=== PATIENT | male | born 1985 | race African-American/Black ===

== ENCOUNTER → 2018-11-22 | Outpatient (REF) | payer OTHER ==
[2018-11-22 19:17] LABS: APPEARANCE, URINE CLEAR (CLEAR); BACTERIA, URINE AUTO NEGATIVE (NEGATIVE); BILIRUBIN, URINE AUTO NEGATIVE (NEGATIVE); BLOOD, URINE BLOOD 3+ (NEGATIVE); COLOR, URINE YELLOW (YELLOW); GLUCOSE, URINE (UA) AUTO NEGATIVE (NEGATIVE); KETONE, URINE AUTO NEGATIVE (NEGATIVE); LEUKOCYTE ESTERASE, URINE AUTO NEGATIVE (NEGATIVE); MUCUS, URINE SMALL (NEGATIVE); NITRITE, URINE AUTO NEGATIVE (NEGATIVE); PROTEIN, URINE AUTO 1+ mg/dL (NEGATIVE); RBC, URINE AUTO 4 /HPF (0-3); SPECIFIC GRAVITY URINE AUTO 1.011 (1.002-1.035); SQUAMOUS EPITHELIAL CELL UR AU 0 /HPF (0-6); UROBILINOGEN, URINE AUTO 0.2 mg/dL (0.0-2.0); WBC, URINE AUTO 1 /HPF (0-3)
[2018-11-22 19:35] LABS: HEMATOCRIT 47.3 % (42.0-52.0); HEMOGLOBIN 16.1 g/dl (13.5-17.5); MEAN CORPUSCULAR HEMOGLOBIN 28.9 pg (27.0-33.0); MEAN CORPUSCULAR VOLUME 84.9 fl (80.0-96.0); PLATELET COUNT, AUTOMATED 338 10^3/uL (150-450); RED BLOOD COUNT 5.57 10^6/uL (4.30-6.10); WHITE BLOOD COUNT 7.6 10^3/uL (4.0-10.0)
[2018-11-22 21:11] LABS: CHLAMYDIA DNA AMPLIFICATION NEGATIVE (NEGATIVE); GC DNA AMPLIFICATION NEGATIVE (NEGATIVE)
[2018-11-22 22:09] LABS: ALT/SGPT 526 U/L (12-78); BILIRUBIN,TOTAL 0.5 MG/DL (0.2-1.0); BLOOD UREA NITROGEN 11 MG/DL (7-18); CALCIUM LEVEL 9.2 MG/DL (8.5-10.1); CARBON DIOXIDE LEVEL 30 MEQ/L (21-32); CHLORIDE LEVEL 103 MEQ/L (98-107); CPK CREATINE PHOSPHOKINASE 110000 U/L (39-308); CREATININE FOR GFR 0.95 MG/DL (0.70-1.30); GLOMERULAR FILTRATION RATE > 60.0 (>60); GLUCOSE, FASTING 90 MG/DL (70-100); POTASSIUM SERUM 4.2 MEQ/L (3.5-5.1); SODIUM LEVEL 139 MEQ/L (136-145); TOTAL PROTEIN 7.8 GM/DL (6.4-8.2)
== END ==
LOC: M SFHCLERA 15:50
PROVIDERS: ATTEND Physician Assistant
DX: R82.998 Other abnormal findings in urine (principal); R31.29 Other microscopic hematuria

== ENCOUNTER 2018-11-24 16:12 | Inpatient (IN) | payer OTHER ==
[~2018-11-24] VITALS: Ht 177.8 cm; Wt 89.8 kg
[2018-11-24] MEDS ORDERED: NS 1,000 ML IV ONE ×2 (16:45→17:15)
[2018-11-24 17:14] LABS: BASO % 0.3 % (0.0-1.0); EOS # 0.2 10^3/uL (0.0-0.50); EOS % 3.2 % (0.0-3.0); HEMOGLOBIN 16.1 g/dl (13.5-17.5); LYMPH # 2.5 10^3/uL (1.5-4.5); LYMPH % 39.6 % (24.0-44.0); MEAN CORPUSCULAR HEMOGLOBIN 29.4 pg (27.0-33.0); MEAN CORPUSCULAR VOLUME 84.1 fl (80.0-96.0); MONO # 0.6 10^3/uL (0.0-0.8); MONO % 9.3 % (0.0-5.0); PLATELET COUNT, AUTOMATED 311 10^3/uL (150-450); RED BLOOD COUNT 5.47 10^6/uL (4.30-6.10); WHITE BLOOD COUNT 6.3 10^3/uL (4.0-10.0)
[2018-11-24 17:32] LABS: VENOUS BASE EXCESS -2.6 (-2.0-2.0); VENOUS HCO3 23.7 MEQ/L (23.0-27.0); VENOUS PARTIAL PRESSURE O2 43.9 mmHg (30.0-50.0); VENOUS PH 7.329 UNITS (7.330-7.430); VENOUS STANDARD HCO3 21.7 MEQ/L; VENOUS TOTAL CO2 25.1 MEQ/L (24.0-28.0)
[2018-11-24 17:51] LABS: AMPHETAMINES LEVEL URINE NEGATIVE (NEGATIVE); BARBITURATES URINE NEGATIVE (NEGATIVE); BENZODIAZEPINES URINE NEGATIVE (NEGATIVE); CANNABINOIDS URINE NEGATIVE (NEGATIVE); COCAINE METABOLITE URINE NEGATIVE (NEGATIVE); METHADONE URINE NEGATIVE (NEGATIVE); OPIATES URINE NEGATIVE (NEGATIVE); PHENCYCLIDINE URINE NEGATIVE (NEGATIVE)
[2018-11-24 18:11] LABS: SICKLE CELL SCREEN NEGATIVE (NEGATIVE)
[2018-11-24 18:57] LABS: ALBUMIN 3.8 GM/DL (3.2-5.2); ALT/SGPT 586 U/L (12-78); BILIRUBIN,TOTAL 0.4 MG/DL (0.2-1.0); BLOOD UREA NITROGEN 11 MG/DL (7-18); CALCIUM LEVEL 8.8 MG/DL (8.5-10.1); CARBON DIOXIDE LEVEL 27 MEQ/L (21-32); CHLORIDE LEVEL 107 MEQ/L (98-107); CPK CREATINE PHOSPHOKINASE 54023 U/L (39-308); CREATININE FOR GFR 0.98 MG/DL (0.70-1.30); GLOMERULAR FILTRATION RATE > 60.0 (>60); GLUCOSE, FASTING 93 MG/DL (70-100); LDH LACTATE DEHYDROGENASE 1742 U/L (87-241); MYOGLOBIN 1213 NG/ML (16-116); PHOSPHORUS LEVEL 3.9 MG/DL (2.5-4.9); POTASSIUM SERUM 4.2 MEQ/L (3.5-5.1); SODIUM LEVEL 143 MEQ/L (136-145); TOTAL PROTEIN 7.6 GM/DL (6.4-8.2); URIC ACID 4.7 MG/DL (3.5-7.2)
[2018-11-24] MEDS ORDERED: MOM 30ML SUSPENSION UDC PO PRN (19:45)
[2018-11-24] MEDS ORDERED: ACETAMINOPHEN TAB 650MG DOSE (2X325MG) PO PRN (19:45)
[2018-11-24] MEDS ORDERED: MAALOX 30 ML SUSP *UDC PO PRN (19:45)
[2018-11-24 21:30] VITALS: BP 140/80
[2018-11-24] MEDS: NS 0.45% 1,000 ML IV SCH (21:30)
--- NOTE | 2018-11-24 21:35 | HPEPDOC ---
General Date of Admission November 24, 2018 at 19:45 Date of Service: November 24, 2018 Chief Complaint The patient is a 33-year-old male admitted with a reason for visit of Rhabdomyolysis. 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 He was sent to ER due to elevated CK level. Pt reports intense work-out on Friday, that included pull ups. He felt severe arm pain bilaterally, and also generalized weakness, extreme fatigue and nausea. On Friday morning, he noticed brownish discoloration of urine, which prompted him to call health line. He was advised to drink plenty of fluid and a blood test was done. The test result came back today and CK was 100K. In the ER, pt's blood test today showed decreasing CK level at 54K, along with elevated transaminase and myoglobin. Renal fx, CBC and vitals are fine. Pt reports similar episodes of fatigue and dizziness following exercise in the past; for this he had head CT, Echo and Stress test; they were all fine, according ot the pt. Pt also reports intermittent facial rash involving bilateral cheeks for several years. Denies any definite dx; denies any family hx of muscle or skin problems. Denies taking any medication; denies any medical hx. Pt says his arm pain is a lot better, and overall fatigue is resolved. Home Medications No Active Prescriptions or Reported Meds Allergies Coded Allergies: Penicillins (Verified Allergy, Intermediate, hives, 11/24/18) Past Medical History Medical History None Surgical History None Family History Significant Family History: No pertinent family hx Social History * Smoker: Denies Alcohol: Denies Drugs: denies A-FIB/CHADSVASC A-FIB History Current/History of A-Fib/PAF?: No Review of Systems Constitutional: Reports: Weakness, Fatigue; Denies: Chills, Fever Eyes: Denies: Pain, Vision change ENT: Denies: Head Aches Skin: Denies: Rash, Lesions Pulmonary: Denies: Dyspnea, Cough Cardiovascular: Denies: Chest Pain, Palpitations, Edema, Lt Headedness Gastrointestinal: Denies: Nausea, Vomiting, Abdominal Pain, Diarrhea, Constipation Genitourinary: Denies: Dysuria, Frequency Hematologic: Denies: Bruising Endocrine: Denies: Polydipsia, Polyphagia Musculoskeletal: Denies: Neck Pain, Back Pain Neurological: Reports: Weakness; Denies: Numbness, Change in speech Psych: Reports: Mood Normal; Denies: Anxiety Physical Examination General Exam: Positive: Alert, Cooperative, No Acute Distress Eye Exam: Positive: PERRLA ENT Exam: Positive: Atraumatic, Mucous membr. moist/pink Neck Exam: Positive: Supple; Negative: JVD Chest Exam: Positive: Clear to auscultation, Normal air movement Heart Exam: Positive: Rate Normal, Regular Rhythm Abdomen Exam: Positive: Normal bowel sounds, Soft; Negative: Tenderness Extremity Exam: Negative: Edema Skin Exam: Positive: Nl turgor and temperature; Negative: Rash, Breakdown Neuro Exam: Positive: Strength at 5/5 X4 ext, Normal Tone, Sensation Intact Psych Exam: Positive: Mental status NL, Mood NL, Oriented x 3 Vital Signs Vital Signs Date Time Temp Pulse Resp B/P (MAP) Pulse Ox O2 Delivery O2 Flow Rate FiO2 11/24/18 21:03 81 18 125/78 (94) 98 11/24/18 16:13 98.8 Room Air Laboratory Data Labs 24H Laboratory Tests 2 11/24/18 00:00: 11/24/18 16:53: Immature Granulocyte % (Auto) 0.6, White Blood Count 6.3, Red Blood Count 5.47, Hemoglobin 16.1, Hematocrit 46.0, Mean Corpuscular Volume 84.1, Mean Corpuscular Hemoglobin 29.4, Mean Corpuscular Hemoglobin Concent 35.0, Red Cell Distribution Width 12.3, Platelet Count 311, Neutrophils (%) (Auto) 47.0, Lymphocytes (%) (Auto) 39.6, Monocytes (%) (Auto) 9.3H, Eosinophils (%) (Auto) 3.2H, Basophils (%) (Auto) 0.3, Neutrophils # (Auto) 3.0, Lymphocytes # (Auto) 2.5, Monocytes # (Auto) 0.6, Eosinophils # (Auto) 0.2, Basophils # (Auto) 0.0, Nucleated Red Blood Cells % (auto) 0.0, Sickle Cell Screen NEGATIVE, Anion Gap 9, Glomerular Filtration Rate > 60.0, Blood Urea Nitrogen 11, Creatinine 0.98, Sodium Level 143, Potassium Level 4.2, Chloride Level 107, Carbon Dioxide Level 27, Calcium Level 8.8, Phosphorus Level 3.9, Aspartate Amino Transf (AST/SGOT) 1197H, Al anine Aminotransferase (ALT/SGPT) 586H, Lactate Dehydrogenase 1742H, Total Creatine Kinase 73713I, Alkaline Phosphatase 104, Total Bilirubin 0.4, Uric Acid 4.7, Total Protein 7.6, Albumin 3.8, Ammonia 46H, Myoglobin 1213H, Albumin/Globulin Ratio 1.00, Urine Amphetamines Screen NEGATIVE, Urine Benzod iazepines Screen NEGATIVE, Urine Opiates Screen NEGATIVE, Urine Methadone Screen NEGATIVE, Urine Barbiturates Screen NEGATIVE, Urine Phencyclidine Screen NEGATIVE, Urine Cocaine Metabolite Screen NEGATIVE, Urine Cannabinoids Screen NEGATIVE 11/24/18 17:11: 11/24/18 17:20: Blood Gas Bicarbonate Standard 21.7, Venous Blood pH 7.329L, Venous Blood Partial Pressure CO2 46.0, Venous Blood Partial Pressure O2 43.9, Venous Blood Total Carbon Dioxide 25.1, Venous Blood HCO3 23.7, Venous Blood Oxygen Saturation 76.0, Venous Blood Base Excess -2.6L, Lactic Acid Level 2.0 11/24/18 19:01: POC Glucose (Misc Panel) 93, POC Sodium (Misc Panel) 142, POC Potassium (Misc Panel) 4.1, POC Chloride (Misc Panel) 104, POC Total CO2 (Misc Panel) 27.0, POC Blood Urea Nitrogen (Misc Panel 10, POC Ionized Calcium (Misc Panel) 4.8, POC Creatinine (Misc Panel) 1.0, POC Hematocrit (Misc Panel) 42.0 CBC/BMP Laboratory Tests 11/24/18 16:53 Red Blood Count 5.47, Mean Corpuscular Volume 84.1, Mean Corpuscular Hemoglobin 29.4, Mean Corpuscular Hemoglobin Concent 35.0, Red Cell Distribution Width 12.3, Neutrophils (%) (Auto) 47.0, Lymphocytes (%) (Auto) 39.6, Monocytes (%) (Auto) 9.3 H, Eosinophils (%) (Auto) 3.2 H, Basophils (%) (Auto) 0.3, Neutrophil s # (Auto) 3.0, Lymphocytes # (Auto) 2.5, Monocytes # (Auto) 0.6, Eosinophils # (Auto) 0.2, Basophils # (Auto) 0.0, Calcium Level 8.8, Phosphorus Level 3.9, Aspartate Amino Transf (AST/SGOT) 1197 H, Alanine Aminotransferase (ALT/SGPT) 586 H, Lactate Dehydrogenase 1742 H, Total Creatine Kinase 60418 H, Alkaline Phosphatase 104, Total Bilirubin 0.4, Uric Acid 4.7, Total Protein 7.6, Albumin 3.8 Assessment/Plan Rhabdomyolysis due to Extreme Physical Exertion - Admit to inpatient - Aggressive IV hydration for renal protection; start with IV 0.45%NS at 250 cc/hr - Monitor renal fx and CK level - May consider w/u for dermatomyositis or genetic disorders as OP if recurrent problem. - Encourage free Ambulate to prevent DVT Plan / VTE VTE Prophylaxis Ordered?: No VTE Exclusion Mechanical Proph: Low Risk for VTE VTE Exclusion Pharmacological: At Low Risk for VTE Plan Anticipated Discharge: Home MIHAELA SPEARS MD November 24, 2018 21:35
[2018-11-25] VITALS: BP 133/60
[2018-11-25] MEDS: NS 0.45% 1,000 ML IV SCH ×6 (01:00→21:45)
[2018-11-25 08:00] VITALS: BP 156/85
[2018-11-25] MEDS: KETOROLAC 30 MG/ML VIAL (J1885) IV PRN (08:44)
[2018-11-25 09:17] LABS: ALBUMIN 3.3 GM/DL (3.2-5.2); ALT/SGPT 425 U/L (12-78); BILIRUBIN,TOTAL 0.4 MG/DL (0.2-1.0); BLOOD UREA NITROGEN 8 MG/DL (7-18); CALCIUM LEVEL 8.2 MG/DL (8.5-10.1); CARBON DIOXIDE LEVEL 26 MEQ/L (21-32); CHLORIDE LEVEL 108 MEQ/L (98-107); CPK CREATINE PHOSPHOKINASE 29776 U/L (39-308); CREATININE FOR GFR 0.84 MG/DL (0.70-1.30); GLOMERULAR FILTRATION RATE > 60.0 (>60); GLUCOSE, FASTING 89 MG/DL (70-100); POTASSIUM SERUM 4.2 MEQ/L (3.5-5.1); SODIUM LEVEL 141 MEQ/L (136-145); TOTAL PROTEIN 6.3 GM/DL (6.4-8.2)
[2018-11-25 16:00] VITALS: BP 137/63
--- NOTE | 2018-11-25 17:09 | IPNPDOC ---
Text Note Date of Service The patient was seen on 11/25/18. NOTE Subjective: Patient seen and examined at bedside. No acute overnight events reported. Patient has no new medical complaints. States he is feeling better, with increased mobility of his upper extremities. Objective: General: NAD, lying comfortably in bed, well developed HEENT: NC/AT, EOMI, PERRL Lungs: CTA B/L Heart: +S1S2, RRR Abd: soft, NT, +BS Ext: no edema A/P: 33 yo male for rhabdomyolysis secondary to strenuous workouts: #rhabdo - CK trending down - continue to follow - aggressive hydration - toradol for pain control #dizziness/weakness - unclear etiology - patient states has had extensive workup including exercise stress test, echocardiogram, MRI/MRA of brain - refer for o/p neurology follow up VS,Zena, I+O VS, Zena, I+O Laboratory Tests 11/25/18 06:50 Calcium Level 8.2 L, Aspartate Amino Transf (AST/SGOT) 695 H, Alanine Aminotransferase (ALT/SGPT) 425 H, Total Creatine Kinase 15220 H, Alkaline Phosp hatase 77, Total Bilirubin 0.4, Total Protein 6.3 L, Albumin 3.3 Vital Signs Date Time Temp Pulse Resp B/P (MAP) Pulse Ox O2 Delivery O2 Flow Rate FiO2 11/25/18 16:00 98.6 74 19 137/63 (87) 100 11/24/18 16:13 Room Air I&O- Last 24 Hours up to 6 AM 11/25/18 06:00 Intake Total 3225 ml Output Total 1350 ml Balance 1875 ml MASON MORENO MD November 25, 2018 17:09
[2018-11-25 20:00] VITALS: BP 128/71
[2018-11-26] VITALS: BP 137/69
[2018-11-26] MEDS: NS 0.45% 1,000 ML IV SCH ×6 (02:00→23:00)
[2018-11-26 06:52] LABS: HEMATOCRIT 40.2 % (42.0-52.0); MEAN CORPUSCULAR HEMOGLOBIN 30.1 pg (27.0-33.0); MEAN CORPUSCULAR HGB CONC 35.1 g/dl (32.0-36.5); MEAN CORPUSCULAR VOLUME 85.7 fl (80.0-96.0); PLATELET COUNT, AUTOMATED 248 10^3/uL (150-450); RED BLOOD COUNT 4.69 10^6/uL (4.30-6.10); WHITE BLOOD COUNT 6.2 10^3/uL (4.0-10.0)
[2018-11-26 07:10] LABS: HEMOGLOBIN 14.1 g/dl (13.5-17.5)
[2018-11-26 08:00] VITALS: BP 125/66
[2018-11-26 08:15] LABS: BLOOD UREA NITROGEN 9 MG/DL (7-18); CALCIUM LEVEL 8.2 MG/DL (8.5-10.1); CARBON DIOXIDE LEVEL 27 MEQ/L (21-32); CHLORIDE LEVEL 108 MEQ/L (98-107); CPK CREATINE PHOSPHOKINASE 14023 U/L (39-308); CREATININE FOR GFR 0.84 MG/DL (0.70-1.30); GLOMERULAR FILTRATION RATE > 60.0 (>60); GLUCOSE, FASTING 86 MG/DL (70-100); POTASSIUM SERUM 3.7 MEQ/L (3.5-5.1); SODIUM LEVEL 142 MEQ/L (136-145)
[2018-11-26 09:56] LABS: ALT/SGPT 354 U/L (12-78)
[2018-11-26] MEDS: KETOROLAC 30 MG/ML VIAL (J1885) IV PRN ×2 (14:26→23:01)
[2018-11-26 16:00] VITALS: BP 142/81
[2018-11-26 20:00] VITALS: BP 143/73
[2018-11-27] MEDS: NS 0.45% 1,000 ML IV SCH ×6 (02:36→20:17)
[2018-11-27 03:00] VITALS: BP 134/62
[2018-11-27 08:00] VITALS: BP 131/87
--- NOTE | 2018-11-27 11:13 | IPNPDOC ---
Text Note Date of Service The patient was seen on 11/27/18. NOTE Subjective: Patient seen and examined at bedside. No acute overnight events reported. Patient has no new medical complaints. States he is feeling better, with increased mobility of his upper extremities. Objective: General: NAD, lying comfortably in bed, well developed HEENT: NC/AT, EOMI, PERRL Lungs: CTA B/L Heart: +S1S2, RRR Abd: soft, NT, +BS Ext: no edema A/P: 33 yo male for rhabdomyolysis secondary to strenuous workouts: #rhabdo - CK trending down - continue to follow - continue aggressive hydration - toradol for pain control #dizziness/weakness - unclear etiology - patient states has had extensive workup including exercise stress test, echocardiogram, MRI/MRA of brain - refer for o/p neurology follow up VS,Zena, I+O VS, Zena, I+O Vital Signs Date Time Temp Pulse Resp B/P (MAP) Pulse Ox O2 Delivery O2 Flow Rate FiO2 11/27/18 08:00 98.5 69 18 131/87 (102) 100 11/24/18 16:13 Room Air I&O- Last 24 Hours up to 6 AM 11/27/18 06:00 Intake Total 5160 ml Output Total 4875 ml Balance 285 ml MASON MORENO MD November 27, 2018 11:13
[2018-11-27 16:00] VITALS: BP 140/71
[2018-11-28] VITALS: BP 108/71
[2018-11-28] MEDS: KETOROLAC 30 MG/ML VIAL (J1885) IV PRN (00:23)
[2018-11-28] MEDS: NS 0.45% 1,000 ML IV SCH ×6 (00:23→21:28)
[2018-11-28 07:01] LABS: HEMATOCRIT 37.8 % (42.0-52.0); HEMOGLOBIN 13.2 g/dl (13.5-17.5); MEAN CORPUSCULAR HEMOGLOBIN 29.2 pg (27.0-33.0); MEAN CORPUSCULAR HGB CONC 34.9 g/dl (32.0-36.5); MEAN CORPUSCULAR VOLUME 83.6 fl (80.0-96.0); PLATELET COUNT, AUTOMATED 257 10^3/uL (150-450); RED BLOOD COUNT 4.52 10^6/uL (4.30-6.10); WHITE BLOOD COUNT 5.8 10^3/uL (4.0-10.0)
[2018-11-28 07:45] LABS: ALT/SGPT 246 U/L (12-78); BILIRUBIN,TOTAL 0.4 MG/DL (0.2-1.0); BLOOD UREA NITROGEN 10 MG/DL (7-18); CALCIUM LEVEL 8.4 MG/DL (8.5-10.1); CARBON DIOXIDE LEVEL 27 MEQ/L (21-32); CHLORIDE LEVEL 106 MEQ/L (98-107); CPK CREATINE PHOSPHOKINASE 7857 U/L (39-308); CREATININE FOR GFR 0.87 MG/DL (0.70-1.30); GLOMERULAR FILTRATION RATE > 60.0 (>60); GLUCOSE, FASTING 79 MG/DL (70-100); POTASSIUM SERUM 3.6 MEQ/L (3.5-5.1); SODIUM LEVEL 142 MEQ/L (136-145); TOTAL PROTEIN 6.1 GM/DL (6.4-8.2)
[2018-11-28 08:00] VITALS: BP 120/62
--- NOTE | 2018-11-28 09:40 | IPNPDOC ---
Text Note Date of Service The patient was seen on 11/26/18. NOTE Subjective: Patient seen and examined at bedside. No acute overnight events reported. Patient has no new medical complaints. States he is feeling better, with increased mobility of his upper extremities. Objective: General: NAD, lying comfortably in bed, well developed HEENT: NC/AT, EOMI, PERRL Lungs: CTA B/L Heart: +S1S2, RRR Abd: soft, NT, +BS Ext: no edema A/P: 33 yo male for rhabdomyolysis secondary to strenuous workouts: #rhabdo - CK trending down - continue to follow - aggressive hydration - toradol for pain control #dizziness/weakness - unclear etiology - patient states has had extensive workup including exercise stress test, echocardiogram, MRI/MRA of brain - refer for o/p neurology follow up VS,Zena, I+O VS, Zena, I+O Laboratory Tests 11/28/18 06:19 Red Blood Count 4.52, Mean Corpuscular Volume 83.6, Mean Corpuscular Hemoglobin 29.2, Mean Corpuscular Hemoglobin Concent 34.9, Red Cell Distribution Width 11.9, Calcium Level 8.4 L, Aspartate Amino Transf (AST/SGOT) 167 H, Alanine Aminotransferase (ALT/SGPT) 246 H, Total Creatine Kinase 7857 H, Alkaline Phosphatase 71, Total Bilirubin 0.4, Total Protein 6.1 L, Albumin 3.0 L Vital Signs Date Time Temp Pulse Resp B/P (MAP) Pulse Ox O2 Delivery O2 Flow Rate FiO2 11/28/18 08:00 97.3 71 18 120/62 (81) 100 11/24/18 16:13 Room Air I&O- Last 24 Hours up to 6 AM 11/28/18 06:00 Intake Total 49295 ml Output Total 6000 ml Balance 4440 ml MASON MORENO MD Nov 28, 2018 09:39
--- NOTE | 2018-11-28 10:32 | IPNPDOC ---
Text Note Date of Service The patient was seen on 11/28/18. NOTE Subjective: Patient seen and examined at bedside. No acute overnight events reported. Patient has no new medical complaints. States he is feeling better, with increased mobility of his upper extremities. Objective: General: NAD, lying comfortably in bed, well developed HEENT: NC/AT, EOMI, PERRL Lungs: CTA B/L Heart: +S1S2, RRR Abd: soft, NT, +BS Ext: no edema A/P: 33 yo male for rhabdomyolysis secondary to strenuous workouts: #rhabdo - CK trending down - continue to follow - continue aggressive hydration - toradol for pain control #dizziness/weakness - unclear etiology - patient states has had extensive workup including exercise stress test, echocardiogram, MRI/MRA of brain - refer for o/p neurology follow up Dispo: anticipating d/c IV fluids tomorrow, if CK continues to trend down without IVF can d/c home friday VS,Fishbone, I+O VS, Fishbone, I+O Laboratory Tests 11/28/18 06:19 Red Blood Count 4.52, Mean Corpuscular Volume 83.6, Mean Corpuscular Hemoglobin 29.2, Mean Corpuscular Hemoglobin Concent 34.9, Red Cell Distribution Width 11.9, Calcium Level 8.4 L, Aspartate Amino Transf (AST/SGOT) 167 H, Alanine Hope otransferase (ALT/SGPT) 246 H, Total Creatine Kinase 7857 H, Alkaline Phosphatase 71, Total Bilirubin 0.4, Total Protein 6.1 L, Albumin 3.0 L Vital Signs Date Time Temp Pulse Resp B/P (MAP) Pulse Ox O2 Delivery O2 Flow Rate FiO2 11/28/18 08:00 97.3 71 18 120/62 (81) 100 11/24/18 16:13 Room Air I&O- Last 24 Hours up to 6 AM 11/28/18 06:00 Intake Total 84318 ml Output Total 6000 ml Balance 4440 ml MASON MORENO MD Nov 28, 2018 10:32
[2018-11-28] MEDS ORDERED: PERCOCET 5MG/325MG TAB PO PRN (10:45)
[2018-11-28 16:00] VITALS: BP 134/70
[2018-11-28 20:00] VITALS: BP 123/76
[2018-11-29 00:30] VITALS: BP 130/62
[2018-11-29] MEDS: NS 0.45% 1,000 ML IV SCH ×2 (01:42→05:54)
[2018-11-29 08:00] VITALS: BP 107/55
--- NOTE | 2018-11-29 10:03 | IPNPDOC ---
Text Note Date of Service The patient was seen on 11/29/18. NOTE Subjective: Patient seen and examined at bedside. No acute overnight events reported. Complains of some pain and swelling at his left elbow. His IV was switched to his right arm. No other medical complaints. Objective: General: NAD, lying comfortably in bed, well developed HEENT: NC/AT, EOMI, PERRL Lungs: CTA B/L Heart: +S1S2, RRR Abd: soft, NT, +BS Ext: no edema, mild edema at left elbow A/P: 33 yo male for rhabdomyolysis secondary to strenuous workouts: #rhabdo - CK trending down - continue to follow - dc IV fluids - encourage fluid intake - pain control with percocet / tylenol #dizziness/weakness - unclear etiology - patient states has had extensive workup including exercise stress test, echocardiogram, MRI/MRA of brain - refer for o/p neurology follow up Dispo: anticipating d/c tomorrow if CK continues to trend down without IVF VS,Fishbone, I+O VS, Fishbone, I+O Vital Signs Date Time Temp Pulse Resp B/P (MAP) Pulse Ox O2 Delivery O2 Flow Rate FiO2 11/29/18 08:00 98.0 72 18 107/55 (72) 99 11/24/18 16:13 Room Air I&O- Last 24 Hours up to 6 AM 11/29/18 06:00 Intake Total 5400 ml Output Total 6940 ml Balance -1540 ml MASON MORENO MD Nov 29, 2018 10:02
[2018-11-29 16:00] VITALS: BP 118/64
[2018-11-29 20:00] VITALS: BP 128/76
[2018-11-30] VITALS: BP 101/57
[2018-11-30 06:56] LABS: HEMATOCRIT 43.3 % (42.0-52.0); HEMOGLOBIN 15.1 g/dl (13.5-17.5); MEAN CORPUSCULAR HEMOGLOBIN 29.7 pg (27.0-33.0); MEAN CORPUSCULAR HGB CONC 34.9 g/dl (32.0-36.5); MEAN CORPUSCULAR VOLUME 85.1 fl (80.0-96.0); PLATELET COUNT, AUTOMATED 287 10^3/uL (150-450); RED BLOOD COUNT 5.09 10^6/uL (4.30-6.10); WHITE BLOOD COUNT 6.9 10^3/uL (4.0-10.0)
[2018-11-30 07:30] LABS: ALBUMIN 3.4 GM/DL (3.2-5.2); ALT/SGPT 215 U/L (12-78); BILIRUBIN,TOTAL 0.4 MG/DL (0.2-1.0); BLOOD UREA NITROGEN 10 MG/DL (7-18); CARBON DIOXIDE LEVEL 29 MEQ/L (21-32); CHLORIDE LEVEL 105 MEQ/L (98-107); CPK CREATINE PHOSPHOKINASE 3449 U/L (39-308); CREATININE FOR GFR 1.08 MG/DL (0.70-1.30); GLOMERULAR FILTRATION RATE > 60.0 (>60); GLUCOSE, FASTING 82 MG/DL (70-100); POTASSIUM SERUM 3.7 MEQ/L (3.5-5.1); SODIUM LEVEL 141 MEQ/L (136-145); TOTAL PROTEIN 6.9 GM/DL (6.4-8.2)
[2018-11-30 08:00] VITALS: BP 131/75
--- NOTE | 2018-11-30 10:29 | IPNPDOC ---
Text Note Date of Service The patient was seen on 11/30/18. NOTE Subjective: Patient seen and examined at bedside. No acute overnight events reported. Patient states he only had moderate fluid intake yesterday. Denies any new medical complaints. Objective: General: NAD, lying comfortably in bed, well developed HEENT: NC/AT, EOMI, PERRL Lungs: CTA B/L Heart: +S1S2, RRR Abd: soft, NT, +BS Ext: no edema, mild edema at left elbow A/P: 33 yo male for rhabdomyolysis secondary to strenuous workouts: #rhabdo - CK trending down - continue to follow - continue to encourage fluid intake - increase in creatinine - possibly due to minimal fluid intake yesterday - continue to follow renal function #dizziness/weakness - unclear etiology - patient states has had extensive workup including exercise stress test, echocardiogram, MRI/MRA of brain - refer for o/p neurology follow up Dispo: anticipating d/c tomorrow if creatinine stable, CK continues to trend down without IVF VS,Fishbone, I+O VS, Fishbone, I+O Laboratory Tests 11/30/18 06:16 Red Blood Count 5.09, Mean Corpuscular Volume 85.1, Mean Corpuscular Hemoglobin 29.7, Mean Corpuscular Hemoglobin Concent 34.9, Red Cell Distribution Width 1 1.9, Calcium Level 9.0, Aspartate Amino Transf (AST/SGOT) 93 H, Alanine Aminotransferase (ALT/SGPT) 215 H, Total Creatine Kinase 3449 H, Alkaline Phosphatase 84, Total Bilirubin 0.4, Total Protein 6.9, Albumin 3.4 Vital Signs Date Time Temp Pulse Resp B/P (MAP) Pulse Ox O2 Delivery O2 Flow Rate FiO2 11/30/18 08:00 97.4 68 18 131/75 (93) 100 11/24/18 16:13 Room Air I&O- Last 24 Hours up to 6 AM 11/30/18 06:00 Intake Total 3870 ml Output Total 6250 ml Balance -2380 ml MASON MORENO MD Nov 30, 2018 10:29
[2018-11-30 16:00] VITALS: BP 132/88
--- NOTE | 2018-11-30 17:11 | DS.PDOC ---
Discharge Summary General Date of Admission November 24, 2018 at 19:45 Date of Discharge anticipating 12/01/18 Discharge Summary PROCEDURES PERFORMED DURING STAY: [None]. DISCHARGE DIAGNOSES: 1. Rhabdomyolysis. COMPLICATIONS/CHIEF COMPLAINT: Rhabdomyolysis. 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 He was sent to ER due to elevated CK level. Pt reports intense work-out on Friday, that included pull ups. He felt severe arm pain bilaterally, and also generalized weakness, extreme fatigue and nausea. On Friday morning, he noticed brownish discoloration of urine, which prompted him to call health line. He was advised to drink plenty of fluid and a blood test was done. The test result came back today and CK was 100K. In the ER, pt's blood test today showed decreasing CK level at 54K, along with elevated transaminase and myoglobin. Renal fx, CBC and vitals are fine. Pt reports similar episodes of fatigue and dizziness following exercise in the past; for this he had head CT, Echo and Stress test; they were all fine, according ot the pt. HOSPITAL COURSE: Patient responded well to aggressive hydration with IV fluids. CK trending down, renal function remained stable. IV fluids were discontinued, with the hopes that patient could be transferred the following day, if CK continued to trend down with oral hydration. His CK did trend down, however creatinine worsened. Patient was held over for one more day, with further encouragement of fluid intake, to monitor renal function the following day. It was noted that his fluid intake was only moderate, and was encourage to increase fluid intake, also discussed with nurses. DISCHARGE MEDICATIONS: Please see below. ALLERGIES: Please see below. LABORATORY DATA: Please see below. ACTIVITY: Avoid strenuous activity until CK is within normal limits. Then proceed slowly with activity. Discussed at length with patient. DIET: Regular DISCHARGE INSTRUCTIONS: 1. Avoid strenuous activity. 2. Follow up with PCP in 3-5 days. ITEMS TO FOLLOWUP ON ON OUTPATIENT: 1. Follow up CK and BMP in 1-2 days after discharge, then as per PCP. TIME SPENT ON DISCHARGE: 32 minutes. Vital Signs/I&Os Vital Signs Date Time Temp Pulse Resp B/P (MAP) Pulse Ox O2 Delivery O2 Flow Rate FiO2 11/30/18 16:00 98.4 65 18 132/88 (103) 100 11/24/18 16:13 Room Air I&O- Last 24 Hours up to 6 AM 11/30/18 06:00 Intake Total 3870 ml Output Total 6250 ml Balance -2380 ml Laboratory Data Labs 24H Laboratory Tests 2 11/30/18 06:16: Nucleated Red Blood Cells % (auto) 0.0, Anion Gap 7L, Glomerular Filtration Rate > 60.0, Blood Urea Nitrogen 10, Creatinine 1.08, Sodium Level 141, Potassium Level 3.7, Chloride Level 105, Carbon Dioxide Level 29, Calcium Level 9.0, Aspartate Amino Transf (AST/SGOT) 93H, Alanine Aminotransferase (ALT/SGPT) 215H, Total Creatine Kinase 3449H, Alkaline Phosphatase 84, Total Bilirubin 0.4, Total Protein 6.9, Albumin 3.4, Albumin/Globulin Ratio 0.97L CBC/BMP Laboratory Tests 11/30/18 06:16 Red Blood Count 5.09, Mean Corpuscular Volume 85.1, Mean Corpuscular Hemoglobin 29.7, Mean Corpuscular Hemoglobin Concent 34.9, Red Cell Distribution Width 11.9, Calcium Level 9.0, Aspartate Amino Transf (AST/SGOT) 93 H, Alanine Amino transferase (ALT/SGPT) 215 H, Total Creatine Kinase 3449 H, Alkaline Phosphatase 84, Total Bilirubin 0.4, Total Protein 6.9, Albumin 3.4 Discharge Medications No Active Prescriptions or Reported Meds Allergies Coded Allergies: Penicillins (Verified Allergy, Intermediate, hives, 11/24/18) MASON MORENO MD Nov 30, 2018 17:11
[2018-12-01] VITALS: BP 124/66
[2018-12-01 06:22] LABS: BLOOD UREA NITROGEN 13 MG/DL (7-18); CALCIUM LEVEL 8.6 MG/DL (8.5-10.1); CARBON DIOXIDE LEVEL 29 MEQ/L (21-32); CHLORIDE LEVEL 104 MEQ/L (98-107); CPK CREATINE PHOSPHOKINASE 2396 U/L (39-308); CREATININE FOR GFR 1.06 MG/DL (0.70-1.30); GLOMERULAR FILTRATION RATE > 60.0 (>60); GLUCOSE, FASTING 82 MG/DL (70-100); SODIUM LEVEL 140 MEQ/L (136-145)
[2018-12-01 08:00] VITALS: BP 137/85
--- NOTE | 2018-12-01 13:05 | IPNPDOC ---
Text Note Date of Service The patient was seen on 12/01/18. NOTE ADDENDUM TO DISCHARGE SUMMARY NOTE: S: Patient seen and examined. See discharge note. labs continue to show improvement. no myalgia, no hematuria, no CP, no SOB O: Physical exam at discharge: Vitals see below General: Pleasant, NAD, AAOx3 HRRR LCTA no W/R/R Ext: no edema A/P: Rhabdomyalsis - improving. continue with large amounts of water. rest, no strenous activity. [facility]u with [facility] doctor on 12/03/18 as previously scheduled. repeat CMP, CPK in 1-2 days and again as per outpatient doc until CPK normalized. monitor LFT, Renal status. If labs worsen, then readmit for clarence sanchez outpatient treatment. VS,Fishbone, I+O VS, Fishbone, I+O Laboratory Tests 12/01/18 05:30 Calcium Level 8.6 Vital Signs Date Time Temp Pulse Resp B/P (MAP) Pulse Ox O2 Delivery O2 Flow Rate FiO2 12/01/18 08:25 16 12/01/18 08:00 97.5 79 137/85 (102) 100 I&O- Last 24 Hours up to 6 AM 12/01/18 06:00 Intake Total 9620 ml Output Total 8625 ml Balance 995 ml Item Value Date Time Sodium Level 140 MEQ/L 12/01/18 0530 Potassium Level 4.0 MEQ/L 12/01/18 0530 Blood Urea Nitrogen 13 MG/DL 12/01/18 0530 Creatinine 1.06 MG/DL 12/01/18 0530 Total Creatine Kinase 2396 U/L H 12/01/18 0530 Total Creatine Kinase 3449 U/L H 11/30/18 0616 Total Creatine Kinase 4943 U/L H 11/29/18 0618 Aspartate Amino Transf (AST/SGOT) 93 U/L H 11/30/18 0616 Alanine Aminotransferase (ALT/SGPT) 215 U/L H 11/30/18 0616 Sodium Level 141 MEQ/L 11/30/18 0616 Potassium Level 3.7 MEQ/L 11/30/18 0616 Blood Urea Nitrogen 10 MG/DL 11/30/18 0616 Creatinine 1.08 MG/DL 11/30/18 0616 Aspartate Amino Transf (AST/SGOT) 167 U/L H 11/28/18 0619 Alanine Aminotransferase (ALT/SGPT) 246 U/L H 11/28/18 0619 Total Creatine Kinase 35628 U/L H 11/27/18 0619 Total Creatine Kinase 7857 U/L H 11/28/18 0619 Total Creatine Kinase 44566 U/L H 11/26/18 0636 Total Creatine Kinase 66000 U/L H 11/25/18 0650 Total Creatine Kinase 54305 U/L H 11/24/18 1653 Blood Urea Nitrogen 9 MG/DL 11/26/18 0636 Creatinine 0.84 MG/DL 11/26/18 0636 Sodium Level 142 MEQ/L 11/26/18 0636 Potassium Level 3.7 MEQ/L 11/26/18 0636 Sodium Level 143 MEQ/L 11/24/18 1653 Potassium Level 4.2 MEQ/L 11/24/18 1653 Blood Urea Nitrogen 11 MG/DL 11/24/18 1653 Creatinine 0.98 MG/DL 11/24/18 1653 Aspartate Amino Transf (AST/SGOT) 1197 U/L H 11/24/18 1653 Alanine Aminotransferase (ALT/SGPT) 586 U/L H 11/24/18 1653 Aspartate Amino Transf (AST/SGOT) 695 U/L H 11/25/18 0650 Alanine Aminotransferase (ALT/SGPT) 425 U/L H 11/25/18 0650 Aspartate Amino Transf (AST/SGOT) 393 U/L H 11/26/18 0636 Alanine Aminotransferase (ALT/SGPT) 354 U/L H 11/26/18 0636 Lactate Dehydrogenase 1742 U/L H 11/24/18 1653 Myoglobin 1213 NG/ML H 11/24/18 1653 TRANG BURNS DO Dec 01, 2018 12:38
== END 2018-12-01 14:00 | disposition home or self-care (01) | DRG 558 ==
LOC: M ED 16:12 → M ED INP 19:45 → M PED 21:30
PROVIDERS: ADMIT Internal Medicine; ATTEND Internal Medicine
DX: M62.82 Rhabdomyolysis (principal); R42 Dizziness and giddiness; Z88.0 Allergy status to penicillin

== ENCOUNTER 2019-01-11 08:09 | Emergency (ER) | payer OTHER ==
[~2019-01-11] VITALS: Ht 177.8 cm; Wt 84.5 kg
[2019-01-11] MEDS ORDERED: RIBO400T PO (08:16)
[2019-01-11] MEDS ORDERED: ESSE250T PO (08:16)
[2019-01-11] MEDS ORDERED: NS 1,000 ML IV ONE (09:15)
[2019-01-11 09:41] LABS: BASO % 0.4 % (0.0-1.0); EOS # 0.1 10^3/uL (0.0-0.50); EOS % 2.3 % (0.0-3.0); HEMATOCRIT 45.9 % (42.0-52.0); HEMOGLOBIN 16.4 g/dl (13.5-17.5); LYMPH # 2.7 10^3/uL (1.5-4.5); LYMPH % 50.4 % (24.0-44.0); MEAN CORPUSCULAR HEMOGLOBIN 30.4 pg (27.0-33.0); MEAN CORPUSCULAR HGB CONC 35.7 g/dl (32.0-36.5); MONO # 0.6 10^3/uL (0.0-0.8); MONO % 11.7 % (0.0-5.0); NEUTROPHILS # 1.9 10^3/uL (1.8-7.7); PLATELET COUNT, AUTOMATED 284 10^3/uL (150-450); WHITE BLOOD COUNT 5.3 10^3/uL (4.0-10.0)
[2019-01-11 09:43] LABS: MYOGLOBIN SCREEN, URINE NEGATIVE (NEGATIVE)
[2019-01-11 09:46] LABS: APPEARANCE, URINE HAZY (CLEAR); BACTERIA, URINE AUTO NEGATIVE (NEGATIVE); BILIRUBIN, URINE AUTO NEGATIVE (NEGATIVE); BLOOD, URINE BLOOD NEGATIVE (NEGATIVE); COLOR, URINE YELLOW (YELLOW); GLUCOSE, URINE (UA) AUTO NEGATIVE (NEGATIVE); KETONE, URINE AUTO NEGATIVE (NEGATIVE); LEUKOCYTE ESTERASE, URINE AUTO NEGATIVE (NEGATIVE); NITRITE, URINE AUTO NEGATIVE (NEGATIVE); PROTEIN, URINE AUTO NEGATIVE (NEGATIVE); RBC, URINE AUTO 0 /HPF (0-3); SPECIFIC GRAVITY URINE AUTO 1.006 (1.002-1.035); SQUAMOUS EPITHELIAL CELL UR AU 0 /HPF (0-6); UROBILINOGEN, URINE AUTO 0.2 mg/dL (0.0-2.0); WBC, URINE AUTO 0 /HPF (0-3)
[2019-01-11 10:20] LABS: ALBUMIN 4.1 GM/DL (3.2-5.2); ALT/SGPT 46 U/L (12-78); BILIRUBIN,DIRECT 0.2 MG/DL (0.0-0.2); BILIRUBIN,TOTAL 0.5 MG/DL (0.2-1.0); BLOOD UREA NITROGEN 11 MG/DL (7-18); CALCIUM LEVEL 9.2 MG/DL (8.5-10.1); CARBON DIOXIDE LEVEL 32 MEQ/L (21-32); CHLORIDE LEVEL 104 MEQ/L (98-107); CPK CREATINE PHOSPHOKINASE 191 U/L (39-308); CREATININE FOR GFR 1.21 MG/DL (0.70-1.30); GLOMERULAR FILTRATION RATE > 60.0 (>60); GLUCOSE, FASTING 91 MG/DL (70-100); POTASSIUM SERUM 3.9 MEQ/L (3.5-5.1); SODIUM LEVEL 140 MEQ/L (136-145); TOTAL PROTEIN 7.6 GM/DL (6.4-8.2)
[2019-01-11 11:15] VITALS: BP 140/88
== END 2019-01-11 11:18 | disposition home or self-care (01) ==
LOC: M ED 08:09
DX: M79.10 Myalgia, unspecified site (principal); Z79.899 Other long term (current) drug therapy; Z88.0 Allergy status to penicillin

== ENCOUNTER → 2019-05-07 | Outpatient (CLI) | payer OTHER ==
[~2019-05-07] MED LIST: ESSE250T PO; RIBO400T PO
[2019-05-07 18:16] LABS: FREE THYROXINE INDEX 3.3 % (1.4-3.8); THYROID STIMULATING HORMONE 1.53 uIU/ML (0.358-3.740); THYROXINE (T4) 9.3 UG/DL (4.5-12.0)
[2019-05-13 14:51] LABS: ALDOLASE 5.7 U/L (3.3-10.3); ANA (HEP2) Negative (.); ANTI DS-DNA AB Negative (Negative); Lyme Disease IgG/IgM Antibodie <0.91 ISR (0.00-0.90); Lyme Disease IgM Ab Quantitati <0.80 index (0.00-0.79); RNP ANTIBODY < 0.2 AI (0.0-0.9); SMITHS ANTIBODY < 0.2 AI (0.0-0.9); SSA SJOGRENS A <0.2 AI (0.0-0.9); SSB SJOGRENS B <0.2 AI (0.0-0.9)
== END ==
LOC: M LAB 16:08
PROVIDERS: ATTEND Internal Medicine Rheumatology
DX: G72.9 Myopathy, unspecified (principal); M79.18 Myalgia, other site
CPT/HCPCS: 36415; 82085; 82550; 84436; 84443; 84479; 86038; 86160; 86225; 86235; 86255; 86617; G0463

== ENCOUNTER → 2019-07-20 | Outpatient (CLI) | payer OTHER ==
--- NOTE | 2019-07-20 11:44 | REP ---
Chest x-ray: Two views. History: Chest pain . Comparison study: No comparison study . Findings: The lungs are well inflated and free of infiltrate. The pleural angles are sharp. The heart size is normal. Pulmonary vasculature is not increased. No significant bony abnormality is seen. Impression: Negative chest x-ray. Electronically Signed by Shamar Chua MD 07/20/2019 11:36 A
== END ==
LOC: M LRY 11:11
PROVIDERS: ATTEND Nurse Practitioner Family
DX: R07.9 Chest pain, unspecified (principal)

== ENCOUNTER → 2019-07-20 | Outpatient (REF) | payer OTHER ==
[2019-07-20 13:30] LABS: BASO % 0.2 % (0.0-1.0); EOS % 0.5 % (0.0-3.0); HEMATOCRIT 43.7 % (42.0-52.0); HEMOGLOBIN 14.8 g/dl (13.5-17.5); LYMPH # 2.2 10^3/uL (1.5-5.0); LYMPH % 24.3 % (24.0-44.0); MEAN CORPUSCULAR HEMOGLOBIN 29.4 pg (27.0-33.0); MEAN CORPUSCULAR HGB CONC 33.9 g/dl (32.0-36.5); MEAN CORPUSCULAR VOLUME 86.7 fl (80.0-96.0); MONO # 0.6 10^3/uL (0.0-0.8); MONO % 6.9 % (0.0-5.0); NEUTROPHILS % 67.4 % (36.0-66.0); PLATELET COUNT, AUTOMATED 318 10^3/uL (150-450); RED BLOOD COUNT 5.04 10^6/uL (4.30-6.10); WHITE BLOOD COUNT 8.8 10^3/uL (4.0-10.0)
[2019-07-20 13:43] LABS: ALBUMIN 4.6 GM/DL (3.2-5.2); ALT/SGPT 42 U/L (12-78); BILIRUBIN,TOTAL 0.4 MG/DL (0.2-1.0); BLOOD UREA NITROGEN 13 MG/DL (7-18); CALCIUM LEVEL 9.3 MG/DL (8.5-10.1); CARBON DIOXIDE LEVEL 28 MEQ/L (21-32); CHLORIDE LEVEL 105 MEQ/L (98-107); CK-MB VALUE MASS 2.4 NG/ML (<3.6); CPK CREATINE PHOSPHOKINASE 449 U/L (39-308); CREATININE FOR GFR 1.08 MG/DL (0.70-1.30); GLOMERULAR FILTRATION RATE > 60.0 (>60); GLUCOSE, FASTING 81 MG/DL (70-100); MB/CK RELATIVE INDEX 0.53 (< OR =4); POTASSIUM SERUM 3.6 MEQ/L (3.5-5.1); SODIUM LEVEL 140 MEQ/L (136-145); THYROID STIMULATING HORMONE 0.817 uIU/ML (0.358-3.740); TOTAL PROTEIN 7.7 GM/DL (6.4-8.2); TROPONIN I < 0.02 NG/ML (< 0.10)
== END ==
LOC: M SFHCLERA 11:04
PROVIDERS: ATTEND Nurse Practitioner Family
DX: R07.9 Chest pain, unspecified (principal)
CPT/HCPCS: 71046; 80053; 82550; 82553; 84443; 84484; 85025; 87804; 93005; G0463

== ENCOUNTER 2019-08-29 00:13 | Emergency (ER) | payer OTHER ==
[~2019-08-29] VITALS: Ht 172.7 cm; Wt 92.7 kg
[2019-08-29] MEDS ORDERED: ALL10TAB29 (00:23)
[2019-08-29] MEDS ORDERED: PHAR25CA (00:23)
[2019-08-29] MEDS ORDERED: NS 1,000 ML IV ONE (00:45)
[2019-08-29 01:01] LABS: BASO % 0.2 % (0.0-1.0); EOS # 0.3 10^3/uL (0.0-0.5); EOS % 3.7 % (0.0-3.0); HEMATOCRIT 47.1 % (42.0-52.0); HEMOGLOBIN 16.2 g/dl (13.5-17.5); LYMPH # 3.9 10^3/uL (1.5-5.0); LYMPH % 48.2 % (24.0-44.0); MEAN CORPUSCULAR HEMOGLOBIN 28.8 pg (27.0-33.0); MEAN CORPUSCULAR HGB CONC 34.4 g/dl (32.0-36.5); MEAN CORPUSCULAR VOLUME 83.8 fl (80.0-96.0); MONO # 0.8 10^3/uL (0.0-0.8); MONO % 10.3 % (0.0-5.0); MYOGLOBIN SCREEN, URINE NEGATIVE (NEGATIVE); NEUTROPHILS % 37.2 % (36.0-66.0); PLATELET COUNT, AUTOMATED 338 10^3/uL (150-450); RED BLOOD COUNT 5.62 10^6/uL (4.30-6.10); WHITE BLOOD COUNT 8.1 10^3/uL (4.0-10.0)
[2019-08-29 01:09] LABS: APPEARANCE, URINE CLEAR (CLEAR); BACTERIA, URINE AUTO NEGATIVE (NEGATIVE); BILIRUBIN, URINE AUTO NEGATIVE (NEGATIVE); BLOOD, URINE BLOOD NEGATIVE (NEGATIVE); COLOR, URINE STRAW (YELLOW); GLUCOSE, URINE (UA) AUTO NEGATIVE (NEGATIVE); KETONE, URINE AUTO NEGATIVE (NEGATIVE); LEUKOCYTE ESTERASE, URINE AUTO NEGATIVE (NEGATIVE); MUCUS, URINE SMALL (NEGATIVE); NITRITE, URINE AUTO NEGATIVE (NEGATIVE); PROTEIN, URINE AUTO NEGATIVE (NEGATIVE); RBC, URINE AUTO 1 /HPF (0-3); SPECIFIC GRAVITY URINE AUTO 1.009 (1.002-1.035); SQUAMOUS EPITHELIAL CELL UR AU 0 /HPF (0-6); UROBILINOGEN, URINE AUTO 0.2 mg/dL (0.0-2.0); WBC, URINE AUTO 0 /HPF (0-3)
[2019-08-29 01:25] LABS: ALBUMIN 4.5 GM/DL (3.2-5.2); ALT/SGPT 50 U/L (12-78); BILIRUBIN,DIRECT 0.1 MG/DL (0.0-0.2); BILIRUBIN,TOTAL 0.3 MG/DL (0.2-1.0); BLOOD UREA NITROGEN 8 MG/DL (7-18); CARBON DIOXIDE LEVEL 28 MEQ/L (21-32); CHLORIDE LEVEL 107 MEQ/L (98-107); CPK CREATINE PHOSPHOKINASE 270 U/L (39-308); CREATININE FOR GFR 1.12 MG/DL (0.70-1.30); GLOMERULAR FILTRATION RATE > 60.0 (>60); GLUCOSE, FASTING 75 MG/DL (70-100); POTASSIUM SERUM 3.6 MEQ/L (3.5-5.1); SODIUM LEVEL 141 MEQ/L (136-145); TOTAL PROTEIN 8.3 GM/DL (6.4-8.2)
[2019-08-29 01:46] VITALS: BP 133/87
== END 2019-08-29 01:47 | disposition home or self-care (01) ==
LOC: M ED 00:13
DX: Z00.00 Encounter for general adult medical examination without abnormal findings (principal); J30.2 Other seasonal allergic rhinitis; Z79.899 Other long term (current) drug therapy; Z88.0 Allergy status to penicillin